=== PATIENT | female | born 1980 | race Caucasian/White ===

== ENCOUNTER 2016-06-18 11:03 | Emergency (ER) | payer OTHER ==
[2016-06-18 11:49] VITALS: BP 130/72
--- NOTE | 2016-06-18 13:02 | UC ---
Throat Pain/Nasal Rebel HPI - HPI Summary HPI Summary: Patient complains of throat pain and fever X 2 days. Denies sick contacts. Denies cough or congestion. Patient also complains of chills intermittently. She denies abdominal symptoms, headache, nausea, vomiting, diarrhea or chest pain or pressure. - History of Current Complaint Chief Complaint: UCRespiratory Stated Complaint: SORE THROAT Time Seen by Provider: 06/18/16 12:45 Hx Obtained From: Patient Hx Last Menstrual Period: 06/10/16 ?: No Onset/Duration: Sudden Onset Severity: Moderate Pain Intensity: 2 Pain Scale Used: 0-10 Numeric Cough: None Associated Signs & Symptoms: Positive: Hoarseness, Fever - Epiglottits Risk Factors Epiglottis Risk Factors: Negative - Allergies/Home Medications Allergies/Adverse Reactions: Allergies Allergy/AdvReac Type Severity Reaction Status Date / Time Morphine Allergy Severe LIPS SWELL Verified 06/18/16 11:43 / VOMITS PMH/Surg Hx/FS Hx/Imm Hx Previously Healthy: Yes - Surgical History Surgical History: Yes Surgery Procedure, Year, and Place: CHOLECYSTECTOMY, C SECTION X 2 - Family History Known Family History: Positive: None - Social History Alcohol Use: None Substance Use Type: None Smoking Status (MU): Never Smoked Tobacco Household Exposure Type: Cigarettes Review of Systems Constitutional: Fever Skin: Negative Eyes: Negative ENT: Sore Throat Respiratory: Negative Cardiovascular: Negative Gastrointestinal: Negative Motor: Negative Musculoskeletal: Negative Neurological: Negative Psychological: Negative All Other Systems Reviewed And Are Negative: Yes Physical Exam Triage Information Reviewed: Yes Appearance: Well-Appearing, No Pain Distress, Well-Nourished Vital Signs: Initial Vital Signs Temp 100.2 F 06/18/16 11:44 Pulse 111 06/18/16 11:44 Resp 20 06/18/16 11:44 BP 130/72 06/18/16 11:44 Pulse Ox 100 06/18/16 11:44 Vital Signs Reviewed: Yes Eye Exam: Normal Eyes: Positive: Conjunctiva Clear ENT Exam: Normal ENT: Positive: Pharyngeal erythema, TMs normal Neck exam: Normal Neck: Positive: Supple, Nontender Respiratory Exam: Normal Respiratory: Positive: Chest non-tender, Lungs clear Cardiovascular Exam: Normal Musculoskeletal Exam: Normal Psychological Exam: Normal Psychological: Positive: Normal Response To Family, Age Appropriate Behavior Skin Exam: Normal Throat Pain/Nasal Course/Dx - Course Course Of Treatment: POCT rapid swab. Positive result. physical exam performed. allergies reviewed. patient prescribed amoxicillin with return precautions. Assessment/Plan: amoxicillin 500mg BID for 10 days. Cepacol tabs as needed for discomfort. - Differential Dx/Diagnosis Differential Diagnosis/HQI/PQRI: Pharyngitis, URI Provider Diagnoses: strep throat - Physician Notification/Consults Instructed by Provider To: Have Pt Call For Appt. Discharge - Discharge Plan Condition: Stable Disposition: HOME Prescriptions: Amoxicillin CAP* 500 mg PO Q12H #20 cap MDD 2 Patient Education Materials: Pharyngitis (ED) Referrals: Aura Bell MD [Primary Care Provider] - Additional Instructions: Dx: Strep Throat You will need antibiotic medicine to treat your strep throat. Please take the antibiotic as directed. You should~feel better~within 2 to 3 days after you start antibiotics. You may return to work or school 24 hours after you start antibiotics. If you have any questions about your medications, please do no hesitate to call or talk with your pharmacist. How can I manage my symptoms? Use lozenges, ice, soft foods, or popsicles~to soothe your throat. Drink juice, milk shakes, or soup~if~your throat~is too sore to eat solid food. Drinking liquids can also help prevent dehydration. Gargle with salt water.~Mix teaspoon salt in a 1 cup of warm water and gargle. This may help reduce swelling in your throat. Do not smoke.~Nicotine and other chemicals in cigarettes and cigars can cause lung damage and make your symptoms worse. Ask your healthcare provider for information if you currently smoke and need help to quit. E-cigarettes or smokeless tobacco still contain nicotine. Talk to your healthcare provider before you use these products. How do I prevent the spread of strep throat? Wash your hands often.~Use soap and water. Wash your hands after you use the bathroom, change a child's diapers, or sneeze. Wash your hands before you prepare or eat food. Do not share food or drinks.~Replace your toothbrush after you have taken antibiotics for 24 hours.
== END 2016-06-18 13:03 | disposition home or self-care (01) ==
LOC: UCCORT 11:03
DX: J02.0 Streptococcal pharyngitis (principal); Z88.5 Allergy status to narcotic agent
CPT/HCPCS: 87651; 99212; G0463

== ENCOUNTER 2016-10-18 16:56 | Emergency (ER) | payer OTHER ==
[2016-10-18 17:40] VITALS: BP 148/78
--- NOTE | 2016-10-18 18:32 | UC ---
Throat Pain/Nasal Rebel HPI - HPI Summary HPI Summary: pt c/o nasal congestion, sore throat, and "GI bug" symptoms that have been alternating over the last 4 weeks. Pt has tried OTC cold medications with little to no improvement - History of Current Complaint Chief Complaint: UCGeneralIllness Stated Complaint: THROAT,CHEST CONGESTION,STOMACH Time Seen by Provider: 10/18/16 18:19 Hx Obtained From: Patient Hx Last Menstrual Period: 09/23/16 ?: No Onset/Duration: Gradual Onset, Lasting Weeks - 4 Severity: Mild Cough: Nonproductive Associated Signs & Symptoms: Positive: Other - sore throat, nassal congestion - Allergies/Home Medications Allergies/Adverse Reactions: Allergies Allergy/AdvReac Type Severity Reaction Status Date / Time Morphine Allergy Severe LIPS SWELL Verified 10/18/16 17:40 / VOMITS PMH/Surg Hx/FS Hx/Imm Hx Previously Healthy: Yes - Surgical History Surgical History: Yes Surgery Procedure, Year, and Place: CHOLECYSTECTOMY, C SECTION X 2 - Family History Known Family History: Positive: Other - [facility] for URI - Social History Lives: With Family Alcohol Use: Rare Substance Use Type: None Smoking Status (MU): Never Smoked Tobacco Household Exposure Type: Cigarettes Review of Systems Constitutional: Negative Skin: Negative Eyes: Negative ENT: Sore Throat, Other - nasal congestion, sinus pressure Respiratory: Negative Cardiovascular: Negative Gastrointestinal: Negative Genitourinary: Negative Motor: Negative Neurovascular: Negative Musculoskeletal: Myalgia - generalized myalgia Neurological: Headache Psychological: Negative All Other Systems Reviewed And Are Negative: Yes Physical Exam Triage Information Reviewed: Yes Appearance: Ill-Appearing - mild Vital Signs: Initial Vital Signs Temp 97.6 F 10/18/16 17:33 Pulse 71 10/18/16 17:33 Resp 20 10/18/16 17:33 BP 148/78 10/18/16 17:33 Pulse Ox 100 10/18/16 17:33 Vital Signs Reviewed: Yes Eye Exam: Normal ENT Exam: Other ENT: Positive: Pharyngeal erythema, Nasal congestion, TM bulging - bialteral Neck exam: Normal Neck: Positive: Enlarged Nodes @ - bilateral submandibular Respiratory Exam: Normal Cardiovascular Exam: Normal Musculoskeletal Exam: Normal Neurological Exam: Normal Psychological Exam: Normal Skin Exam: Normal Throat Pain/Nasal Course/Dx - Differential Dx/Diagnosis Differential Diagnosis/HQI/PQRI: Influenza, Otitis Media, Pharyngitis, Tonsillitis, URI Provider Diagnoses: Pharyngitis. Allergic Rhinitis Discharge - Discharge Plan Condition: Stable Disposition: HOME Prescriptions: Amoxicillin CAP* [Amoxicillin 500 MG CAP*] 500 mg PO Q12H #14 cap Fexofenadine-Pseudoephedrine [Shannan-D 24 Hour Allergy] 1 tab PO DAILY #14 tab Patient Education Materials: Pharyngitis (ED), Allergic Rhinitis (ED) Referrals: Aura Bell MD [Primary Care Provider] - 1 Day
== END 2016-10-18 18:56 | disposition home or self-care (01) ==
LOC: UCCORT 16:56
DX: J02.9 Acute pharyngitis, unspecified (principal); J30.9 Allergic rhinitis, unspecified; Z88.5 Allergy status to narcotic agent; Z90.49 Acquired absence of other specified parts of digestive tract; Z77.22 Contact with and (suspected) exposure to environmental tobacco smoke (acute) (chronic)
CPT/HCPCS: 99212; G0463

== ENCOUNTER 2017-07-13 15:15 | Emergency (ER) | payer SELFPAY ==
--- OUTSIDE RECORDS SUMMARY | 2017-07-13 15:24 | XMS REPORT ---
:1980 External Reference #:[id number] Author Organization [employer] [facility] Address [address] [facility] [address] [address] Phone [phone] Care Team Providers Name Role Phone Patricia Moran M.D. PhD Care Team Information [employer] Ath[employer] Unavailable Payers Type Date Identification Numbers Payment Provider Subscriber Medicaid Effective: 2004 Policy Number: [id number] Medicaid ID Mague Valentin Expires: 2005 PayID: [id number] [address] [place] [address] Commercial Policy Number: [id number] Care Assist Mague Valentin PayID: [id number] [place] [id number] Problems Date Description Provider Status Onset: 03/11/2001 Female genital organ symptoms Active Onset: 03/11/2001 Cyst of ovary Active Onset: 03/11/2001 Irregular periods Active Social History Description No Information Available Allergies, Adverse Reactions, Alerts Description No Information Medications Description No Information Results Description No Information Procedures Date CPT Code Description Status 06/13/2004 78383 Ultrasonic/Guidance/Intrapoertive Completed 06/13/2004 29562 Missed, Completed Surgically, First Trimester Completed Encounters Type Date Location Provider CPT E/M Dx Office Visit 07/01/2004 8:00a Main Office Patricia Moran M.D. PhD [id number] [phone] Office Visit 06/13/2004 11:15a Main Office Patricia Moran M.D. PhD [id number] [phone] Office Visit 06/11/2004 10:45a Main Office Patricia Moran M.D. PhD 31879 [phone] Office Visit 06/03/2004 8:00a Main Office Patricia Moran M.D. PhD [id number] [phone] Plan of Care No Information Available
[2017-07-13 15:32] VITALS: BP 141/74
[2017-07-13] MEDS ORDERED: Lidocaine 2% PF * 5 ML VIAL INJ ONE (15:53)
--- NOTE | 2017-07-13 16:13 | UC ---
Laceration HPI - HPI Summary HPI Summary: Patient presents s/p traumatic injury to the right little finger, she accidentally smashed it in the mail-truck side door. She reports a laceration of the pad of the little finger, throbbing pain and pain with flexion of the finger. She states the end of the finger feels numb. - History Of Current Complaint Hx Obtained From: Patient Hx Last Menstrual Period: 06/18/16 Laceration Location: Finger Mechanism Of Injury: Blunt Trauma Severity: Severe Pain Intensity: 10 Aggravating Factors: Movement <Serena Whitney - Last Filed: 07/13/17 17:32> <Audelia Bell - Last Filed: 07/13/17 17:53> - History Of Current Complaint Chief Complaint: UCLaceration Stated Complaint: FINGER LAC Time Seen by Provider: 07/13/17 15:50 - Allergies/Home Medications Allergies/Adverse Reactions: Allergies Allergy/AdvReac Type Severity Reaction Status Date / Time MS Morphine [Morphine] Allergy Severe LIPS SWELL Verified 07/13/17 15:32 / VOMITS Home Medications: Home Medications Cholecalciferol [Vitamin D] 1,000 unit PO DAILY 07/13/17 [History Confirmed ] PMH/Surg Hx/FS Hx/Imm Hx Previously Healthy: Yes - Surgical History Surgical History: Yes Surgery Procedure, Year, and Place: CHOLECYSTECTOMY, C SECTION X 2 - Family History Known Family History: Positive: None, Other - [facility] for URI - Social History Occupation: Employed Full-time Lives: Alone Alcohol Use: Rare Substance Use Type: None Smoking Status (MU): Never Smoked Tobacco Household Exposure Type: Cigarettes <Serena Whitney - Last Filed: 07/13/17 17:32> Review of Systems Constitutional: Negative Skin: Other - right little finger laceration Eyes: Negative ENT: Negative Respiratory: Negative Cardiovascular: Negative Gastrointestinal: Negative Genitourinary: Negative Motor: Negative Neurovascular: Negative Musculoskeletal: Negative Neurological: Negative Psychological: Negative Is Patient Immunocompromised?: No All Other Systems Reviewed And Are Negative: Yes <Serena Whitney - Last Filed: 07/13/17 17:32> Physical Exam Triage Information Reviewed: Yes Appearance: Well-Appearing Vital Signs: Initial Vital Signs Temp 98 F 07/13/17 15:26 Pulse 59 07/13/17 15:26 Resp 22 07/13/17 15:26 BP 141/74 07/13/17 15:26 Pulse Ox 100 07/13/17 15:26 Vital Signs Reviewed: Yes Eye Exam: Normal ENT Exam: Normal Neck exam: Normal Neck: Positive: 1 Respiratory Exam: Normal Cardiovascular Exam: Normal Abdominal Exam: Normal Musculoskeletal Exam: Normal Neurological Exam: Normal Psychological Exam: Normal Skin Exam: Other - right little finger 2.0 cm laceration of finger pad. <Serena Whitney - Last Filed: 07/13/17 17:32> Vital Signs: Initial Vital Signs Temp 98 F 07/13/17 15:26 Pulse 59 07/13/17 15:26 Resp 22 07/13/17 15:26 BP 141/74 07/13/17 15:26 Pulse Ox 100 07/13/17 15:26 <Audelia Bell - Last Filed: 07/13/17 17:53> Laceration Repair - Laceration Repair 1 Description: Linear Laceration Size After Repair: Length (cm) - 2.0 Modified For Repair: No Type Injection: Digital Anesthesia Used: 2.0% Lido Cleansing Completed Via Routine Prep: Yes Irrigation With Pressure Irrigation Device: Yes Closure Material: Sutures Closure Method: Single Layer Suture Of: Skin Suture Type: Nylon <Serena Whitney - Last Filed: 07/13/17 17:32> Laceration Course/Dx - Course/Dx Course Of Treatment: Patient presents s/p traumatic injury to the right little finger, she accidently closed her finger in the mail truck door. Xrays were obtained and were read as fifth tuft fracture, which was reviewed with the patient. The patient was given Keflex 500 mg one table by mouth in the clinic, and discharged home with a 10 day course. Pain was addressed with digital block , and the wound was irrigated with serile saline. The wound was sutured, with 2 interrrupted sutures. In addition the patient was given Advil and tylenol in the department. The finger was splinted. Patient taken out of work until released by another physician. Patient was referred to orthopedist. She was neuro-vasc intact. - Differential Dx - Laceration/Wound Differental Diagnoses: Other - tuft fracture of the right fifth digit. laceration tetanus vaccine administered Provider Diagnoses: tuft fracture of the right fifth phalynx. laceration. tetanus vaccine. care of your stitiches. open fractures <Serena Whitney - Last Filed: 07/13/17 17:32> Discharge <Serena Whitney - Last Filed: 07/13/17 17:32> <Audelia Bell - Last Filed: 07/13/17 17:53> - Discharge Plan Condition: Stable Disposition: HOME Prescriptions: Cephalexin CAP* [Keflex CAP*] 500 mg PO QID #40 cap HYDROcodone/ACETAMIN 5-325 MG* [[place] 5-325 TAB*] 1 tab PO Q4H PRN #14 tab MDD 6 PRN Reason: Pain (Dental) Patient Education Materials: Care For Your Stitches (DC), Laceration (ED), Finger Fracture (ED) Forms: *Work Release Referrals: Rob Cavazos MD [Medical Doctor] - Aura Bell MD [Primary Care Provider] - Additional Instructions: Patient request to see orthopedist in [place], she was referred to [facility] [address] [place] [address], [id number] Attestation Statement User Type: Provider - I was available for consult. This patient was seen by the TREY. The patient was not presented to, seen by, or examined by me. -Ralph <Audelia Bell - Last Filed: 07/13/17 17:53>
--- NOTE | 2017-07-13 16:25 | RAD ---
INDICATION: Right fifth finger injury. TECHNIQUE: 3 views of the right fifth finger were obtained. FINDINGS: There is soft tissue swelling and a soft tissue defect present adjacent to the distal phalanx. There is a transverse nondisplaced fracture of the tuft of the distal phalanx. IMPRESSION: SOFT TISSUE INJURY AND NONDISPLACED FRACTURE OF THE TUFT OF THE DISTAL PHALANX.
[2017-07-13] MEDS ORDERED: Tetan/Diph/Pertus SYR(Tdap)* 0.5 ML SYR(BOOSTRIX) use SYR IM ONE (16:38)
[2017-07-13] MEDS ORDERED: Cephalexin CAP* 500 MG PO ONE (16:44)
--- NOTE | 2017-07-13 17:03 | RAD ---
INDICATION: Right hand injury. TECHNIQUE: 2 views of the right hand were obtained. FINDINGS: There is soft tissue swelling in the fifth finger. There is a transverse nondisplaced fracture of the tuft of the distal phalanx of the fifth finger. IMPRESSION: NONDISPLACED FRACTURE OF THE TUFT OF THE DISTAL PHALANX OF THE FIFTH FINGER.
[2017-07-13] MEDS ORDERED: Acetaminophen TAB* 325 MG PO ONE (17:06)
[2017-07-13] MEDS ORDERED: Ibuprofen TAB* 600 MG PO ONE (17:06)
== END 2017-07-13 17:37 | disposition home or self-care (01) ==
LOC: UCEAST 15:15
DX: S62.606A Fracture of unspecified phalanx of right little finger, initial encounter for closed fracture (principal); W23.0XXA Caught, crushed, jammed, or pinched between moving objects, initial encounter; Y92.9 Unspecified place or not applicable; Z88.5 Allergy status to narcotic agent; Z90.49 Acquired absence of other specified parts of digestive tract
CPT/HCPCS: 12001; 73140; 90715; 99212; A9270-GY; G0463

== ENCOUNTER 2017-07-21 11:21 | Emergency (ER) | payer SELFPAY ==
--- OUTSIDE RECORDS SUMMARY | 2017-07-21 13:52 | XMS REPORT ---
:1980 External Reference #:[id number] Author Organization [facility] 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 Aura Bell MD Primary Care Physician Unavailable Payers Type Date Identification Numbers Payment Provider Subscriber Commercial Policy Number: [id number] [facility] Mague Valentin PayID: [id number] [address] [place] [address] Medicaid Policy Number: [id number] Medicaid Mague Valentin PayID: [id number] [address] [place] [address] Problems Date Description Provider Status Onset: 06/17/2017 Chest pain Aura Bell MD Active Onset: 03/28/2015 Sciatica Aura Bell MD Active Family History Date Family Member(s) Problem(s) Comments Father due to Kidney Disease () Father Diabetes Mellitus Type 2 Father Heart Disease Father Stroke Mother 58 Mother Asthma Mother Diabetes Mellitus Type 2 Mother charcot juan tooth Children 2 Siblings 4 First Sister char[place] ju[place] tooth First Sister Heart Attack Second Sister [place] ju[place] tooth Social History Type Date Description Comments Education Highest level completed, 2 years of college Marital Status Significant Other now they're engaged Lives With Children Lives With Diet Healthy, Well Balanced 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 Alprazolam 05/16 Hx Tablets 1mg 4tabs 1 by mouth [facility] 1hr prior to [facility], - procedure; 05/30 after 1 hr Reference #: [id number] Alprazolam 04/24 Hx Tablets 1mg 2tabs 1 by mouth 1hr prior to Ray, - procedure; 05/16 after 1 hr Reference #: [id number] Lidocaine 04/11 Hx Patches 5% 30uni apply to [facility] ts affected Ray, - areas 12 06/17 hours on, hours off Out Of Work 03/28 Hx seen in the [facility] office for Ray, - injury; time 06/17 off until further notice; flma papers pending. Hydrocodone-Acet Hx Tablets 7.5-325mg 60tab take 1 tablet Aura aminophen /0000 s every 4 to 6 Ray, - hours if 06/17 needed moderate to severe pain Reference #: [id number] Cyclobenzaprine Hx Tablets 10mg 120ta take 1 tablet Aura HCL /0000 bs three times a , - day if needed 06/17 Penicillin V Hx Tablets 500mg take 1 tablet Unknown Potassium /0000 four times a - day 04/11 Medications Administered in Office Medication Date Status Form Strength Qnty SIG Indications Ordering Provider CALLI Administered Injection MD CALLI Crum Administered Injection MD CALLI Crum Administered Injection Rayray Olivera M.D., [facility] Immunizations CPT Code Status Date Vaccine Lot # [id number] Given 06/17/2017 Influenza Virus Vaccine Quadrivalent Iiv4 Split [id number] [id number] Given 03/12/1999 MMR Vaccine, Live, For Subcutaneous Use Vital Signs Date Vital Result Comment 07/20/2017 BP Systolic Sitting Left Arm 110 mmHg BP Diastolic Sitting Left Arm 78 mmHg Heart Rate 65 /min Respiratory Rate 16 /min Height 62.25 inches 5'2.25" Weight 218.00 lb BMI (Body Mass Index) 39.5 kg/m2 BSA (Body Surface Area) 1.99 m2 [place] body weight in kilograms 50 06/17/2017 BP Systolic Sitting Left Arm 116 mmHg BP Diastolic Sitting Left Arm 72 mmHg Body Temperature 98.8 F Heart Rate 78 /min Height 62.25 inches 5'2.25" Weight 220.00 lb BMI (Body Mass Index) 39.9 kg/m2 BSA (Body Surface Area) 2.00 m2 [place] body weight in kilograms 50 O2 % BldC Oximetry 98 % 05/30/2015 BP Systolic 128 mmHg BP Diastolic 84 mmHg BP Systolic Sitting Left Arm 126 mmHg BP Diastolic Sitting Left Arm 83 mmHg Heart Rate 75 /min Respiratory Rate 19 /min Weight 248.38 lb 05/16/2015 BP Systolic 129 mmHg BP Diastolic 74 mmHg Heart Rate 77 /min Respiratory Rate 20 /min Weight 251.12 lb 04/11/2015 BP Systolic 92 mmHg BP Diastolic 65 mmHg Heart Rate 66 /min Respiratory Rate 20 /min Weight 248.38 lb 03/28/2015 BP Systolic 108 mmHg BP Diastolic 78 mmHg Heart Rate 88 /min Respiratory Rate 22 /min Height 63.5 inches 5'3.50" Weight 246.12 lb BMI (Body Mass Index) 42.9 kg/m2 BSA (Body Surface Area) 2.12 m2 Results Test Date Test Result H/L Range Note Comprehensive Metabolic Panel 07/14/2017 Glucose 88 mg/dL 74-106 1 BUN 10 mg/dL 7-18 1 Creatinine 0.8 mg/dL 0.6-1.3 1 Glom Filtration Rate, Estimate >60 mL/min >60 1 If >60 mL/min >60 1, 2 BUN/Creat 12.5 ratio 1 Sodium 140 mmol/L 136-145 1 Potassium 4.0 mmol/L 3.5-5.1 1 Chloride 107 mmol/L 98-107 1 Carbon Dioxide 26 mmol/L 21-32 1 Anion Gap 7 mEq/L Low 8-16 1 Calcium 8.9 mg/dL 8.5-10.1 1 Total Protein 7.5 g/dL 6.4-8.2 1 Albumin 3.4 g/dL 3.4-5.0 1 Globulin 4.1 g/dL 1.9-4.3 1 Alb/Glob 0.8 ratio 1 Bilirubin,Total 0.7 mg/dL 0.2-1.0 1 Sgot/Ast 24 U/L 15-37 1 SGPT/Alt 30 U/L 12-78 1 Alkaline Phosphatase 60 U/L 45-117 1 LDL Cholesterol Profile 07/14/2017 Cholesterol 127 mg/dL <200 1, 3 Triglycerides 110 mg/dL <150 1, 4 HDL Cholesterol 48 mg/dL >40 1, 5 LDL-Cholesterol 57 mg/dL < 100 1, 6 CBS W/Automated Diff 07/14/2017 White Blood Count 8.8 K/uL 3.1-10.7 1 Red Blood Count 4.39 M/uL 3.90-5.40 1 Hemoglobin 13.1 gm/dL 11.6-15.8 1 Hematocrit 39.7 % 36.0-46.1 1 Mean Cell Volume 90.4 fl 80.9-99.0 1 Mean Corpuscular HGB 29.8 pg 25.9-32.7 1 Mean Corpuscular HGB Conc 33.0 g/dL 30.8-34.3 1 Platelet Count 375 K/uL High 155-360 1 Red Cell Distri Width SD 44.4 fl 3-47 1 Red Cell Distri Width %CV 13.8 % 11.7-14.4 1 Mean Platelet Volume 9.5 fL 8.9-12.4 1 Neut% 56.7 % 40.4-72.8 1 Lymph % 35.0 % 20.0-42.0 1 [place] % 7.5 % 4.3-13.2 1 Eo% 0.6 % 0.0-6.6 1 Bas% 0.2 % 0.0-1.1 1 Neut# 4.98 K/uL 1.8-7.0 1 Lymph # 3.08 K/uL 1.0-4.0 1 [place] # 0.66 K/uL 0.3-0.9 1 Eos # 0.05 K/uL 0.0-0.5 1 Baso # 0.02 K/uL 0.0-0.1 1 Laboratory test 07/14/2017 Vitamin D,25-Hydroxy 18.4 ng/mL Low 30.0-100.0 1, 7 finding Affirm Vaginitis 06/17/2017 Trichomonas vaginalis Negative [Negative] 8 Panel Gardnerella vaginalis Negative [Negative] 8 Indu species Negative [Negative] 8, 9 Laboratory test finding 06/18/2016 Rapid Strep Molecular POSITIVE Negative 10 1 Z13.1 Z13.0 Z13.220 E55.9 2 Note: Persistent reduction for 3 months or more in an eGFR <60 mL/min/1.73 m2 defines CKD. Patients with eGFR values >/=60 mL/min/1.73 m2 may also have CKD if evidence of persistent proteinuria is present. The original MDRD equation for estimated GFR is not valid for patients less than 18 years of age. Additional information may be found at www.kdoqi.org. 3 Reference Guidelines*: Desirable: ........... < 200 mg/dL Borderline High: ..... 200-239 mg/dL High: ................ >=240 mg/dL * The National Cholesterol Education Program (NCEP) 4 Reference Guidelines*: Normal: ............. < 150 mg/dL Borderline High: .... 150-199 mg/dL High: ............... 200-499 mg/dL Very High: .......... > 500 mg/dL * Source: National Cholesterol Education Program (NCEP) 5 Reference Guidelines*: Low HDL: ..... < 40 mg/dL Normal: ..... 40-60 mg/dL Desirable: ... > 60 mg/dL *The National Cholesterol Education Program(NCEP) 6 Reference Guidelines*: Optimal:........... <100 mg/dL Near Optimal....... 100-129 mg/dL Borderline High.... 130-159 mg/dL High............... 160-189 mg/dL Very High.......... >=190 mg/dL * Source: National Cholesterol Education Program (NCEP) 7 Vitamin D deficiency has been defined by the [place] of [employer] and an Endocrine Society practice guideline as a level of serum 25-OH vitamin D less than 20 ng/mL (1,2). The Endocrine Society went on to further define vitamin D insufficiency as a level between 21 and 29 ng/mL (2). 1. IOM ([place] of [employer]). 2010. Dietary reference intakes for calcium and D. [place]: The National Academies Press. 2. Lucía MF, Jake NC, Magaly DECKER, et al. Evaluation, treatment, and prevention of vitamin D deficiency: an Endocrine Society clinical practice guideline. JCEM. 2010; 96(7):1911-30. Performed at: RN - [facility] [address] [id number] Maintenance Worker Municipal: Katya Small MD, Phone: [phone] Method: [employer] VPIII DNA Probe Assay 10 Director Of Recruitment: [id number] GABE LYNN JO Procedures Date CPT Code Description Status 07/20/2017 23968 EKG-Tracing And Report Completed 06/17/2017 88006 EKG-Tracing And Report Completed 06/17/2017 Mammogram Completed 02/28/2008 09030 EKG Interpretation And Report Only Completed Encounters Type Date Location Provider CPT E/M Dx Office Visit 07/20/2017 2:45p [place] [address] R07.2 E66.09 Office Visit 06/17/2017 1:00p [place] [address] Z01.419 R07.9 Office Visit 01/15/2016 2:10p [place] [address] Z11.1 Office Visit 01/13/2016 1:00p [place] [address] Z11.1 Office Visit 05/30/2015 8:45a [place] [address] M54.41 Office Visit 05/16/2015 11:30[place] [address] M54.41 Office Visit 04/11/2015 2:00p [place] [address] M54.41 Office Visit 03/28/2015 10:30[place] [address] M54.41 Plan of Care Future Appointment(s):08/31/2017 2:45 pm - Manish Soto MD at Cardiology Xcpjco2209/16/2017 4:00 pm - Aura Bell MD at [facility]07/20/2017 - Manish Soto, MDR07.2 Precordial painNew Orders:Exercise Stress TestComments: Atypical, likely non cardiac but has significant family history. Will arrange for luis e bustillo treadmill stxqrsnQ49.09 Other obesity due to excess caloriesComments: Will obtain copy of recent labs from PCP's office for lipids and TSHAllFollow up :1 month.
[2017-07-21 14:06] VITALS: BP 133/67
[2017-07-21] MEDS ORDERED: Ibuprofen TAB* 600 MG PO ONE (14:14)
--- NOTE | 2017-07-21 14:16 | UC ---
HPI Wound/Suture Re-check - HPI Summary HPI Summary: right 5th finger crush injury 8 days ago-- has not washed wound but has changed the dressing, here for suture removal, has not had follow up care as of yet with orthopedic MD - History Of Current Complaint Chief Complaint: UCGeneralIllness Stated Complaint: STITCHES REMOVAL Time Seen by Provider: 07/21/17 13:46 Hx Obtained From: Patient Hx Last Menstrual Period: 06/18/16 Onset/Duration: Sudden Onset, Lasting Days - 8, Still Present Severity: Moderate Pain Intensity: 6 Pain Scale Used: 0-10 Numeric - Allergies/Home Medications Allergies/Adverse Reactions: Allergies Allergy/AdvReac Type Severity Reaction Status Date / Time MS Morphine [Morphine] Allergy Severe LIPS SWELL Verified 07/21/17 13:59 / VOMITS PMH/Surg Hx/FS Hx/Imm Hx Previously Healthy: Yes - Surgical History Surgical History: Yes Surgery Procedure, Year, and Place: CHOLECYSTECTOMY, C SECTION X 2 - Family History Known Family History: Positive: None, Other - postivie [facility] for URI - Social History Occupation: Employed Full-time Lives: With Family Alcohol Use: None Substance Use Type: None Smoking Status (MU): Never Smoked Tobacco Household Exposure Type: Cigarettes Review of Systems Constitutional: Negative Skin: Negative, Bruising - right distal 5th finger Eyes: Negative ENT: Negative Respiratory: Negative Cardiovascular: Negative Gastrointestinal: Negative Genitourinary: Negative Motor: Negative Neurovascular: Negative Musculoskeletal: Arthralgia - distal right 5th finger Neurological: Negative Psychological: Negative Is Patient Immunocompromised?: No All Other Systems Reviewed And Are Negative: Yes Physical Exam Triage Information Reviewed: Yes Appearance: Well-Appearing, No Pain Distress, Well-Nourished Vital Signs: Initial Vital Signs Temp 98.4 F 07/21/17 14:00 Pulse 62 07/21/17 14:00 Resp 16 07/21/17 14:00 BP 133/67 07/21/17 14:00 Pulse Ox 100 07/21/17 14:00 Vital Signs Reviewed: Yes Eye Exam: Normal Eyes: Positive: Conjunctiva Clear ENT Exam: Normal ENT: Positive: Normal ENT inspection, Hearing grossly normal. Negative: Nasal congestion, Nasal drainage, Trismus, Muffled voice, Hoarse voice Dental Exam: Normal Neck exam: Normal Neck: Positive: Supple, Nontender Respiratory Exam: Normal Respiratory: Positive: Chest non-tender, No respiratory distress, No accessory muscle use Cardiovascular Exam: Normal Cardiovascular: Positive: RRR, Pulses Normal, Brisk Capillary Refill Musculoskeletal Exam: Other Musculoskeletal: Positive: ROM Intact, Strength Limited @, Edema @ - distal right 5th finger Neurological Exam: Normal Neurological: Positive: Alert, Muscle Tone Normal Psychological Exam: Normal Skin Exam: Normal Re-Evaluation - Re-Evaluation First Eval Change: Improved - sutures removed wound approximated, dressing, splint, robyn wrap Course/Dx - Course Course Of Treatment: splint, wash daily, ibuprofen, follow with ortho, steri care - Differential Dx - Laceration/Wound Provider Diagnoses: Suture removal laceration right distal fifth finger, fidelina fracture, crush injury Discharge - Discharge Plan Condition: Stable Disposition: HOME Patient Education Materials: Subungual Hematoma (ED), Crush Injury (ED) Forms: *Work Release Referrals: Raymond Brown MD [Medical Doctor] - 3 Days
== END 2017-07-21 15:23 | disposition home or self-care (01) ==
LOC: UCCORT 11:21
DX: S61.210D Laceration without foreign body of right index finger without damage to nail, subsequent encounter (principal); S62.606D Fracture of unspecified phalanx of right little finger, subsequent encounter for fracture with routine healing; W23.0XXD Caught, crushed, jammed, or pinched between moving objects, subsequent encounter; Z88.5 Allergy status to narcotic agent; Z90.49 Acquired absence of other specified parts of digestive tract; Z77.22 Contact with and (suspected) exposure to environmental tobacco smoke (acute) (chronic)
CPT/HCPCS: 99212; A9270-GY; G0463

== ENCOUNTER 2019-08-02 21:26 | Emergency (ER) | payer SELFPAY ==
[2019-08-02 21:36] VITALS: BP 120/74
--- NOTE | 2019-08-02 21:56 | UC ---
Back Pain HPI - HPI Summary HPI Summary: 39 yo who fell onto her back and left shoulder when she slipped on snow covered ice outside of her doctor's office this morning. Has used acetaminophen 1000mg for pain at 18:00 hours without relief of pain. - History of Current Complaint Chief Complaint: UCGeneralIllness Stated Complaint: SP FALL, BACK INJURY Time Seen by Provider: 08/02/19 21:45 Hx Obtained From: Patient Hx Last Menstrual Period: 07/17/19 Onset/Duration: Sudden Onset, Lasting Hours Timing: Constant Severity Initially: Moderate Severity Currently: Moderate Pain Intensity: 10 Back Pain: Is Diffuse - has pain in the upper back, left shoulder, low back. Character: Aching, Spasmodic Aggravating Factor(s): Movement, Lifting, Bending, Walking Alleviating Factor(s): Rest, Nothing Associated Signs And Symptoms: Negative: Swelling, Bruising, Weakness, Numbness - Risk Factors AAA Risk Factors: Negative TAD Risk Factors: Negative Cauda Equina Risk Factors: Negative Epidural Abscess Risk Factors: Negative - Allergies/Home Medications Allergies/Adverse Reactions: Allergies Allergy/AdvReac Type Severity Reaction Status Date / Time morphine Allergy Swelling Verified 08/02/19 21:31 Of Face,Lips,& Throat Home Medications: Home Medications Cholecalciferol TAB* [Vitamin D TAB*] 1 tab DAILY 08/02/19 [History Confirmed ] Cyclobenzaprine TAB* [Flexeril 10 MG TAB*] 10 mg PO DAILY PRN #10 tab 08/02/19 [ Rx] Naproxen [Naproxen 500 mg tab] 500 mg PO BID PRN #30 tablet. 08/02/19 [Rx] PMH/Surg Hx/FS Hx/Imm Hx Previously Healthy: Yes - Surgical History Surgical History: Yes Surgery Procedure, Year, and Place: CHOLECYSTECTOMY, C SECTION X 2 - Family History Known Family History: Positive: None, Other - [facility] for URI - Social History Occupation: Employed Full-time Lives: With Family Alcohol Use: None Substance Use Type: None Smoking Status (MU): Never Smoked Tobacco Household Exposure Type: Cigarettes Review of Systems All Other Systems Reviewed And Are Negative: Yes Constitutional: Positive: Negative Skin: Positive: Negative Eyes: Positive: Negative ENT: Positive: Negative Respiratory: Positive: Negative Cardiovascular: Positive: Negative Gastrointestinal: Positive: Negative Genitourinary: Positive: Negative Motor: Positive: Decreased ROM - left shoulder Neurovascular: Positive: Negative Musculoskeletal: Positive: Arthralgia, Myalgia Neurological/Mental Status: Positive: Headache Psychological: Positive: Negative Is Patient Immunocompromised?: No Physical Exam Triage Information Reviewed: Yes Appearance: Pain Distress - moderate, Obese Vital Signs: Initial Vital Signs Temp 97.7 F 08/02/19 21:32 Pulse 70 08/02/19 21:32 Resp 16 08/02/19 21:32 BP 120/74 08/02/19 21:32 Pulse Ox 100 08/02/19 21:32 Eye Exam: Normal ENT: Positive: Normal ENT inspection Neck: Positive: Supple, Nontender, No Lymphadenopathy Respiratory: Positive: Lungs clear, Normal breath sounds Cardiovascular: Positive: RRR, No Murmur Musculoskeletal Exam: Other - Antalgic gait, moving slowly. Musculoskeletal: Positive: Strength Intact, No Edema, Strength Limited @, ROM Limited @ - lumbar spine with spasm and limted range of motion., Other: - Left shoulder with full passive range of motion. Minimal bony tenderness to suggest fracture. Neurological: Positive: Alert, Muscle Tone Normal Skin Exam: Normal Diagnostics - Radiology No standard instances Radiology Interpretation Completed By: ED Physician - Flat lordotic curve. Mild degenerative change; no fracture of lumbar spine. Back Pain Course/Dx - Course Course Of Treatment: pain relief following low back injury, ice alternating with heat, use of nsaid' s and muscle relaxants. - Differential Dx/Diagnosis Differential Diagnosis/HQI/PQRI: Fracture, Strain Provider Diagnosis: Low back strain Discharge ED - Sign-Out/Discharge Documenting (check all that apply): Patient Departure All imaging exams completed and their final reports reviewed: No - Discharge Plan Condition: Stable Disposition: HOME Prescriptions: Cyclobenzaprine TAB* [Flexeril 10 MG TAB*] 10 mg PO DAILY PRN #10 tab PRN Reason: Spasms - Back Naproxen [Naproxen 500 mg tab] 500 mg PO BID PRN #30 tablet. PRSlick Reason: Pain - Moderate Patient Education Materials: Low Back Strain (ED) Forms: *Work Release Referrals: Aura Bell MD [Primary Care Provider] - Additional Instructions: The radiologist will review the results of your xray study in the morning. If there is additional information or a change in the reading you will receive a phone call. You have received an injection of toradol for back pain. The effect of this will last about 6 hours. Use flexeril as a muscle relaxant before bed. This will cause sedation and is best limited to nighttime use. Tomorrow morning, begin use of naproxen 500mg twice daily with food for back pain. I suggest twice daily use of at least a week, stop if you develop stomach upset. Rest at home. If you have increasing pain or are not well enough to return to work on Wednesday, please follow up with your primary care doctor. - Billing Disposition and Condition Condition: STABLE Disposition: Home
[2019-08-02] MEDS ORDERED: Ketorolac *IM* INJ* 60 MG/2 ML VIAL IM ONE (21:57)
[2019-08-02] MEDS ORDERED: Cyclobenzaprine TAB* 10 MG PO ONE (22:26)
--- NOTE | 2019-08-03 09:12 | UC ---
- Progress Note Progress Note: xray neg no changes Course/Dx - Diagnoses Provider Diagnoses: Low back strain Discharge ED - Sign-Out/Discharge Documenting (check all that apply): Patient Departure All imaging exams completed and their final reports reviewed: Yes - Discharge Plan Condition: Stable Disposition: HOME Prescriptions: Cyclobenzaprine TAB* [Flexeril 10 MG TAB*] 10 mg PO DAILY PRN #10 tab PRN Reason: Spasms - Back Naproxen [Naproxen 500 mg tab] 500 mg PO BID PRN #30 tablet.dr HERNANDEZ Reason: Pain - Moderate Patient Education Materials: Low Back Strain (ED) Forms: *Work Release Referrals: Aura Bell MD [Primary Care Provider] - Additional Instructions: The radiologist will review the results of your xray study in the morning. If there is additional information or a change in the reading you will receive a phone call. You have received an injection of toradol for back pain. The effect of this will last about 6 hours. Use flexeril as a muscle relaxant before bed. This will cause sedation and is best limited to nighttime use. Tomorrow morning, begin use of naproxen 500mg twice daily with food for back pain. I suggest twice daily use of at least a week, stop if you develop stomach upset. Rest at home. If you have increasing pain or are not well enough to return to work on Wednesday, please follow up with your primary care doctor. - Billing Disposition and Condition Condition: STABLE Disposition: Home
== END 2019-08-02 22:36 | disposition home or self-care (01) ==
LOC: UCCORT 21:26
DX: S39.012A Strain of muscle, fascia and tendon of lower back, initial encounter (principal); W00.0XXA Fall on same level due to ice and snow, initial encounter; Y92.9 Unspecified place or not applicable; R51 Headache; Z88.5 Allergy status to narcotic agent; Z90.49 Acquired absence of other specified parts of digestive tract
CPT/HCPCS: 72110; 96372; 99212; A9270-GY; G0463; J1885